=== PATIENT | female | born 1960 | race Caucasian/White ===

== ENCOUNTER → 2020-04-09 | Day surgery (SDC) | payer OTHER ==
[2020-04-05 11:23] LABS: BASOPHILS # (AUTO) 0.1 (0.0-0.1); BASOPHILS % 0.8 % (0.0-1.0); EOSINOPHILS # (AUTO) 0.3 (0.0-0.4); HEMATOCRIT 42.5 % (34.2-44.1); HEMOGLOBIN 13.8 g/dL (12.0-16.0); LYMPHOCYTES # (AUTO) 2.3 (1.0-3.2); LYMPHOCYTES % 22.5 % (18.0-39.1); MEAN CORPUSCULAR HEMOGLOBIN 29.4 pg (28-32); MEAN CORPUSCULAR HGB CONC 32.5 g/dL (31-35); MEAN CORPUSCULAR VOLUME 90.4 fL (81-99); MONOCYTES # (AUTO) 0.7 (0.2-0.8); MONOCYTES % 6.4 % (4.4-11.3); NEUTROPHILS # (AUTO) 6.7 (2.1-6.9); NEUTROPHILS % 66.6 % (38.7-80.0); PLATELET COUNT 217 x10e3/uL (140-360); RED CELL DISTRIBUTION WIDTH 13.5 % (11.7-14.4)
[~2020-04-09] MED LIST: ASPIRIN81 MG PO; ESCITALOPRAM OX10 MG PO; FAMOTIDINE20 MG PO; FENTANYL CITRATE/PF 100MCG/2 ML INJ ONE; FISH OIL 1,0001 EAC2 PO; LIDOCAINE HCL 2% LOCAL INJ 5 ML SDV VIAL INJ ONE; METOCLOPRAMIDE HCL 10 MG/2ML VIAL ONE; METOPROLOL PO; MIDAZOLAM HCL 2 MG/2 ML VIAL ONE; PANTOPRAZOLE 40 MG 10ML VIAL ONE; PROPOFOL IV EMULSION 10 MG/ML 20 ML VIAL ONE; XYZAL5 MG PO
[2020-04-09 13:20] VITALS: BP 128/81
--- NOTE | 2020-04-09 14:17 | Operative Report ---
DATE OF PROCEDURE: 04/09/2020 SURGEON: Kamran So MD PROCEDURE: EGD with biopsies. INDICATIONS FOR PROCEDURE: Heartburn, indigestion, bloating. MEDICATIONS: The patient was done under MAC, please see anesthesiologist's note. PROCEDURE IN DETAIL: With the patient in the left lateral decubitus position, the flexible fiberoptic Olympus gastroscope was introduced into the esophagus under direct visualization without any difficulty. A minute nodule was noted in the proximal esophagus that was removed per the cold biopsy forceps. There was an approximately 6 mm ulcer at the GE junction without active bleeding or stigmata of recent hemorrhage. The GE junction was nodular, friable and was biopsied. The scope was then advanced with ease into the stomach. Mucosa overlying the antrum and the body revealed some patchy erythema and [id number] edema, and biopsies were obtained and sent to stain for H. pylori. Pylorus was of normal contour and shape, was intubated with ease and the scope was advanced all the way to the second portion of the duodenum. A minute nodule was cold biopsied from the proximal second portion. Biopsies were obtained from the proximal second portion and the duodenal bulb to rule out sprue. The scope was then withdrawn back into the stomach and retroflexed, mucosa overlying the fundus and the cardia appeared to be within normal limits. The scope was then straightened out, it was subsequently withdrawn, and the patient tolerated the procedure well. IMPRESSION: 1. Proximal esophagus, minute nodule, removed per cold biopsy forceps. 2. Approximately 6 mm ulcer, GE junction without active bleeding or stigmata of recent hemorrhage. 3. GE junction nodular, friable, biopsied. 4. Gastritis, biopsied, biopsies sent to stain for Helicobacter pylori. 5. Rule out sprue. 6. Minute nodule, proximal second portion, biopsied. PLAN: Follow up histology. Initiate Protonix 40 mg one p.o. q.a.m. before meals. The patient will need a followup EGD in 2 months to reassess the GE junction. Kamran So MD [facility] [place]/[facility] /[id number] cc: Dr. Salazar Messina
== END | disposition home or self-care (01) ==
LOC: OR 11:23
PROVIDERS: ATTEND Internal Medicine Gastroenterology
DX: K29.70 Gastritis, unspecified, without bleeding (principal); D13.0 Benign neoplasm of esophagus; K22.10 Ulcer of esophagus without bleeding; K22.8 Other specified diseases of esophagus; G47.33 Obstructive sleep apnea (adult) (pediatric); R03.0 Elevated blood-pressure reading, without diagnosis of hypertension; I48.91 Unspecified atrial fibrillation; J45.909 Unspecified asthma, uncomplicated; Z01.812 Encounter for preprocedural laboratory examination; Z20.828 Contact with and (suspected) exposure to other viral communicable diseases; Z79.82 Long term (current) use of aspirin; Z68.35 Body mass index [BMI] 35.0-35.9, adult; Z80.0 Family history of malignant neoplasm of digestive organs
CPT/HCPCS: 36415; 43239; 85025; C9113; J2001; J2250; J2704; J2765; J3010; U0002